=== PATIENT | female | born 1965 | race Caucasian/White ===

== ENCOUNTER 2016-11-30 06:31 | Day surgery (SDC) | payer BC, MEDICARE ==
--- NOTE | ~2016-11-30 | EGD ---
EGD REPORT [facility] [address] [place] [id number] NAME: JESSICA MELISSA : [birth year] STATUS : [facility]#: [id number] AGE: 51 ADM/REG DATE : 11/30/16 MR#: [id number] REPORT SERV DATE: 11/30/16 DICTATED BY: EMI MALLORY DATE: 11/30/16 REPORT STATUS : Draft [facility] DATE: 11/30/16 [facility] Patient Name: Jessica Melissa Date of : 1965 Attending MD: DELANEY MALLORY MD Procedure Date No Time: 11/30/2016 Procedure: Upper GI endoscopy Indications: Dysphagia Referring MD: LISY SERRANO MD Medicines: See the Anesthesia note for documentation of the administered medications Complications: No immediate complications. Estimated blood loss: Minimal. Procedure: Pre-Anesthesia Assessment: - ASA Grade Assessment: IV - A patient with severe systemic disease that is a constant threat to life. - Prior to the procedure, a History and Physical was performed, and patient medications and allergies were reviewed. The patient's tolerance of previous anesthesia was also reviewed. The risks and benefits of the procedure and the sedation options and risks were discussed with the patient. All questions were answered, and informed consent was obtained. Prior Anticoagulants: The patient has taken aspirin, last dose was 1 day prior to procedure. After reviewing the risks and benefits, the patient was deemed in satisfactory condition to undergo the procedure. After obtaining informed consent, the endoscope was passed under direct vision. Throughout the procedure, the patient's blood pressure, pulse, and oxygen saturations were monitored continuously. The GIF [id number] was introduced through the mouth, and advanced to the second part of duodenum. The upper GI endoscopy was accomplished without difficulty. The patient tolerated the procedure well. Findings: The examined duodenum was normal. The entire examined stomach was normal. The cardia and gastric fundus were normal on retroflexion. A benign-appearing, intrinsic moderate stenosis was found at the gastroesophageal junction and was traversed. A web was found at the cricopharyngeus. A guidewire was placed and the scope was withdrawn. Dilation was performed with a Savary dilator with no resistance at 42 Fr, no resistance at 45 Fr, mild resistance at 48 Fr EGD REPORT [place] [id number] [facility] [place]. [address] NAME: JESSICA MELISSA : [birth year] STATUS : [facility]#: [id number] AGE: 51 ADM/REG DATE : 11/30/16 MR#: [id number] REPORT SERV DATE: 11/30/16 DICTATED BY: EMI MALLORY DATE: 11/30/16 REPORT STATUS : Draft TRANSCRIBED BY: [employer] DATE: 11/30/16 and moderate resistance at 51 Fr. Estimated blood loss was minimal. Impression: - Normal examined duodenum. - Normal stomach. - Benign-appearing esophageal stricture. 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 Dilated. Recommendation: - Patient has a contact number available for emergencies. The signs and symptoms of potential delayed complications were discussed with the patient. Return to normal activities tomorrow. Written discharge instructions were provided to the patient. - Regular diet. - Discharge patient to home. - Continue present medications. Procedure Code(s): --- Professional --- 54590, Esophagogastroduodenoscopy, flexible, transoral; with insertion of guide wire followed by passage of dilator(s) through esophagus over guide wire Diagnosis Code(s): --- Professional --- K22.2, Esophageal obstruction Q39.4, Esophageal web R13.10, Dysphagia, unspecified CPT copyright 2013 [employer]. All rights reserved. The codes documented in this report are preliminary and upon building performance specialist review may be revised to meet current compliance requirements. DELANEY MALLORY MD 11/30/2016 8:15 AM This report has been signed electronically. Number of Addenda: 0 Note Initiated On: 11/30/2016 7:43 AM Scope Withdrawal Time 0 hours 0 minutes 0 seconds
[~2016-11-30 06:31] MED LIST: AMB10 PO; AMIT25 PO; APRES10B PO; APRES25 PO; ASAB PO; CAT1 PO; CELLCEPT5 PO; CIP2 PO; CIP5 PO; COMBIGAN0.2 MG/0.5 OPH; CONSTULOSE PO; COZ50 PO; COZAAR100 MG PO; CYMBALTA60 PO; DEMA100 PO; DEMA20 PO; DIL4TAB PO; DSS PO; DUREZOL0.05 % OPH; FLEX PO; I20 PO; I40 PO; INFED IV; IRON INFUSION IV; IV ANTIBIOTIC IV; KAYEXUD PO; LANTUS SC; LIOR10 PO; LORTAB 5 PO; LUCENTIS IJ; LUCENTIS OPH; LUMIGAN2.5 ML OPH; MIRALAX POWDER1 PKT PO; MIRALAXPKT PO; MOMUD PO; NEUR100 PO; NORCO1 TA1 PO; NORCO1 TAB PO; NORV10 PO; NOVOLOG SC; PCET PO; PR25 PO; PROCRIT10 IV; PROCRIT2 IV; REG5 PO; SILVASORB TOP; SPIRO25 PO; SPIRO50 PO; ULTRAM50 PO; VICODIN HP1 TAB PO; VICODINTAB PO; VITAMIN D1000 UNI1 PO; VITAMIN D31000 UNIT PO; VITD PO; XIFAXAN550 MG PO; ZOFRAN ODT4 MG PO; ZOFRAN4 PO; ZOFRAN8 PO; ZYDONE1 TA2 PO; ZYVOXPO PO; [UNRECOGNIZED DRUG - OTHER] PO
[2016-11-30 07:52] LABS: BUN (BLOOD UREA NITROGEN) 33 MG/DL (6-23); CALCIUM, SERUM 8.9 MG/DL (8.5-10.4); CHLORIDE, SERUM 109 MMOL/L (96-112); CO2 (CARBON DIOXIDE) 27 MMOL/L (24-34); CREATININE 1.87 MG/DL (0.55-1.02); GFR AFRICAN AMERICAN 36 ML/MIN (>=60); GFR NON AFRICAN AMERICAN 31 ML/MIN (>=60); GLUCOSE, SERUM 128 MG/DL (60-99); POTASSIUM, SERUM 4.2 MMOL/L (3.5-5.3); SODIUM, SERUM 142 MMOL/L (135-148)
== END 2016-11-30 23:59 | disposition home or self-care (01) ==
LOC: DMU 06:31
PROVIDERS: Anesthesiology; Internal Medicine Gastroenterology
PROC: 0D717ZZ Dilation of Upper Esophagus, Via Natural or Artificial Opening (ICD-10-PCS; principal; 2016-11-30 08:00)
DX: K22.2 Esophageal obstruction (principal); Q39.4 Esophageal web; R13.10 Dysphagia, unspecified; E11.22 Type 2 diabetes mellitus with diabetic chronic kidney disease; D64.9 Anemia, unspecified; I12.9 Hypertensive chronic kidney disease with stage 1 through stage 4 chronic kidney disease, or unspecified chronic kidney disease; N18.9 Chronic kidney disease, unspecified; Z90.49 Acquired absence of other specified parts of digestive tract; Z98.51 Tubal ligation status; Z98.42 Cataract extraction status, left eye; Z98.890 Other specified postprocedural states; Z89.422 Acquired absence of other left toe(s); M19.90 Unspecified osteoarthritis, unspecified site; Z96.1 Presence of intraocular lens; K44.9 Diaphragmatic hernia without obstruction or gangrene; A52.16 Charcot's arthropathy (tabetic); K76.6 Portal hypertension; H91.90 Unspecified hearing loss, unspecified ear; H93.19 Tinnitus, unspecified ear; Z88.2 Allergy status to sulfonamides; Z88.8 Allergy status to other drugs, medicaments and biological substances; Z88.0 Allergy status to penicillin
CPT/HCPCS: 80048